=== PATIENT | female | born 1960 | race Caucasian/White ===

== ENCOUNTER 2016-11-07 13:44 | Day surgery (SDC) | payer BC, OTHER ==
[~2016-11-07 13:44] MED LIST: BETAMET ACET/BETAMET NA PH 6 MG/1 ML - 5 ML IAC ONE; Iopamidol Inj 61% 50 ML VIAL INTRATHEC ONE; LIDOCAINE IV ONE; Ropivacaine 0.2% VIAL 2 MG/ML VIAL IAC ONE; SODIUM BICARB IV ONE
[2016-11-07 14:20] VITALS: RESP 20
[2016-11-07 14:51] VITALS: TEMP 99
--- NOTE | 2016-11-07 19:19 | GEN.OPNOTE ---
Transforaminal ANTWAN Procedure: Transforaminal Epidural Steriod Injection Procedure Code - Neurosurgery: 60608 : Lumbar Transforaminal Epidural Level: Left L4-5 Preoperative Diagnosis: L4-5 disc protrusion -: Consent: Rationale for procedure, nature of procedure, possible risks and benefits were discussed with the patient. Risks including allergic reaction to medications, known effects of steroid medications including transient elevation in blood sugar with aggravation of pre-existing diabetes and remote risk of aseptic necrosis of the hip. Pain at the injection site, inadvertent dural puncture with resultant in CSF leak and headache possibly requiring further treatment. Infection or bleeding with potential risk of neurologic injury with weakness, paralysis or were all reviewed with the patient who wished to proceed. Anesthesia, sedation: No intravenous access or sedation was used. Physiologic monitoring of pulse and oxygen saturation was utilized. Procedure: The patient was placed prone on the operating room table, prepped with Chloraprep and sterilely draped. The skin was anesthetized with 1% Buffered Xylocaine. Under fluoroscopic control a 22-gauge Touhy needle was advanced into the area of the Kambin's triangle at the [left L4-5] level. Imaging confirmation of needle placement in the posterior, inferior and lateral quadrant of the foramen was obtained. Omnipaque was injected under real-time fluoroscopy demonstrating and epidurogram. Following this [5] ml of a mixture of Celestone (6mg/ml) and 1% ropivacaine was injected. AP and lateral images of the final needle placement was obtained. The needle was removed and the patient returned to the post procedure recovery room where they were monitored for any side effects. Pain assessment: Preprocedure pain [6]/10, post procedure pain [0]/10. Discharge instructions: Patient was given a pain log to be filled out and returned. A delayed response to the steroids of 2-5 days was discussed.
== END 2016-11-07 14:50 | disposition home or self-care (01) ==
LOC: SDSC 13:44
PROVIDERS: ATTEND Neurological Surgery
DX: M51.26 Other intervertebral disc displacement, lumbar region (principal)
CPT/HCPCS: 64483; 76000; J0702; J2795; J2001

== ENCOUNTER → 2017-04-22 | Outpatient (CLI) | payer BC, OTHER | LOC: LAB 11:09 | PROVIDERS: ATTEND Nurse Practitioner Family | DX: S01.80XA Unspecified open wound of other part of head, initial encounter (principal); S01.20XA Unspecified open wound of nose, initial encounter; L57.0 Actinic keratosis | CPT/HCPCS: 87070; 87077; 87185; 87186; 87205 ==